=== PATIENT | male | born 1985 | race Hispanic/Latino ===

== ENCOUNTER 2017-04-11 01:56 | Emergency (ER) | payer MEDICAID, OTHER ==
[2017-04-11 01:56] VITALS: BMI 24.3
[2017-04-11 02:16] VITALS: TEMP 98.2
--- NOTE | 2017-04-11 02:48 | ED PDOC ---
HPI: General Adult Time Seen by Provider: 04/11/17 02:07 Chief Complaint (Nursing): Alcohol Ingestion Chief Complaint (Provider): intoxication Additional Complaint(s): 31yo M in ED -sent by EMS/police for disorderly conduct at a bar due to public intoxication. pt with slurred speech and unstable gait. Past Medical History Reviewed: Historical Data, Nursing Documentation, Vital Signs Vital Signs: Last Vital Signs Temp 98.2 F 04/11/17 02:15 Pulse 102 H 04/11/17 02:15 Resp 18 04/11/17 02:15 BP 161/94 H 04/11/17 02:15 Pulse Ox 97 04/11/17 02:49 - Medical History PMH: Asthma - Family History Family History: States: Unknown Family Hx - Immunization History Hx Tetanus Toxoid Vaccination: No Hx Influenza Vaccination: No Hx Pneumococcal Vaccination: No - Home Medications Home Medications: Ambulatory Orders Medication Instructions Recorded No Known Home Med 01/15/16 - Allergies Allergies/Adverse Reactions: Allergies Allergy/AdvReac Type Severity Reaction Status Date / Time No Known Allergies Allergy Verified 03/04/17 22:28 Review of Systems ROS Statement: Except As Marked, All Systems Reviewed And Found Negative Gastrointestinal: Negative for: Nausea, Vomiting, Abdominal Pain Physical Exam - Reviewed Nursing Documentation Reviewed: Yes Vital Signs Reviewed: Yes - Physical Exam Appears: Positive for: Non-toxic (pt intoxicated with unstable gait, but normal speech), No Acute Distress Head Exam: Positive for: ATRAUMATIC, NORMAL INSPECTION, NORMOCEPHALIC Skin: Positive for: Normal Color, Warm, DRY Cardiovascular/Chest: Positive for: Regular Rate, Rhythm Respiratory: Positive for: CNT, Normal Breath Sounds Neurologic/Psych: Positive for: Alert, Oriented - ECG O2 Sat by Pulse Oximetry: 97 Medical Decision Making Medical Decision Making: improved in ER-clinically sober for d/c Disposition - Clinical Impression Clinical Impression: Alcohol abuse - Patient ED Disposition Is Patient to be Admitted: No - Disposition Disposition: Routine/Home Disposition Time: 05:56 Condition: STABLE Instructions: Alcohol Intoxication (GEN)
[2017-04-11 06:28] VITALS: BP 133/79; PULSE 85; RESP 17; O2SAT 100
== END 2017-04-11 07:00 | disposition home or self-care (01) ==
LOC: H.ER 01:56
DX: F10.10 Alcohol abuse, uncomplicated (principal); J45.909 Unspecified asthma, uncomplicated

== ENCOUNTER 2017-04-17 00:54 | Emergency (ER) | payer MEDICAID ==
[2017-04-17 00:55] VITALS: BMI 24.3
[2017-04-17 01:06] VITALS: BP 160/90; PULSE 108; RESP 18; TEMP 98; O2SAT 97
--- NOTE | 2017-04-17 01:45 | ED PDOC ---
HPI: Psych/Substance Abuse Time Seen by Provider: 04/17/17 01:04 Chief Complaint (Nursing): Medical Clearance Chief Complaint (Provider): Abdominal pain History Per: Patient History/Exam Limitations: no limitations Onset/Duration Of Symptoms: Days (x 1) Current Symptoms Are (Timing): Still Present Additional Complaint(s): 31 year old male presents with diffuse abdominal pain, onset today. Patient is an alcoholic under arrest, in police custody. Pain is mild and diffuse. Denies nausea, vomiting, diarrhea, constipation and any other symptoms. PMD: none provided Past Medical History Reviewed: Historical Data, Nursing Documentation, Vital Signs Vital Signs: Last Vital Signs Temp 98.0 F 04/17/17 01:02 Pulse 108 H 04/17/17 01:02 Resp 18 04/17/17 01:02 BP 160/90 H 04/17/17 01:02 Pulse Ox 97 04/17/17 01:02 - Medical History PMH: Asthma - Surgical History Surgical History: No Surg Hx - Family History Family History: States: Unknown Family Hx - Immunization History Hx Tetanus Toxoid Vaccination: No Hx Influenza Vaccination: No Hx Pneumococcal Vaccination: No - Home Medications Home Medications: Ambulatory Orders Medication Instructions Recorded Dicyclomine [Bentyl] 20 mg PO BID #30 tab 04/17/17 - Allergies Allergies/Adverse Reactions: Allergies Allergy/AdvReac Type Severity Reaction Status Date / Time No Known Allergies Allergy Verified 03/04/17 22:28 Review of Systems ROS Statement: Except As Marked, All Systems Reviewed And Found Negative Gastrointestinal: Positive for: Abdominal Pain. Negative for: Nausea, Vomiting , Diarrhea, Constipation Physical Exam - Reviewed Nursing Documentation Reviewed: Yes Vital Signs Reviewed: Yes - Physical Exam Appears: Positive for: Non-toxic, No Acute Distress Head Exam: Positive for: ATRAUMATIC, NORMOCEPHALIC Skin: Positive for: Normal Color, Warm, Dry Eye Exam: Positive for: EOMI, Normal appearance, PERRL Neck: Positive for: Normal, Painless ROM, Supple Gastrointestinal/Abdominal: Positive for: Soft, Tenderness (diffuse minimal) - Laboratory Results Result Diagrams: 04/17/17 02:17 - ECG O2 Sat by Pulse Oximetry: 97 (RA) Pulse Ox Interpretation: Normal Medical Decision Making Medical Decision Making: Time: 01:21 Impression: Abdominal cramping vs malingering vs alcohol intoxication Initial Plan: --Alcohol serum --BMP --Lipase --Liver profile --Crisis evaluation --Bentyl 20 mg PO Pt. feels better. Patient requires no further treatment at this time and is medically stable. Will be discharged home. Return if symptoms persist or worsen. Scribe Attestation: Documented by Karen Rodríguez, acting as a scribe for Bernaeb Mulligan MD Provider Scribe Attestation: All medical record entries made by the Scribe were at my direction and personally dictated by me. I have reviewed the chart and agree that the record accurately reflects my personal performance of the history, physical exam, medical decision making, and the department course for this patient. I have also personally directed, reviewed, and agree with the discharge instructions and disposition. Disposition - Clinical Impression Clinical Impression: Alcohol intoxication - Patient ED Disposition Is Patient to be Admitted: No - Disposition Referrals: Alcoholics Anonymous [Outside] Disposition: Routine/Home Disposition Time: 04:35 Condition: IMPROVED Additional Instructions: Medically and psychiatrically cleared for incarceration. Prescriptions: Dicyclomine [Bentyl] 20 mg PO BID #30 tab Instructions: Alcohol Intoxication (ED) Forms: [employer] ([place]ian)
[2017-04-17 02:31] LABS: ALB/GLOB RATIO 1.2 (1.0-2.1); ALBUMIN 4.3 g/dL (3.5-5.0); ALT/SGPT 33 U/L (21-72); AST/SGOT 26 U/L (17-59); BILIRUBIN,DIRECT 0.2 mg/ml (0.0-0.4); BLOOD UREA NITROGEN 7 mg/dl (9-20); CALCIUM 9.2 mg/dL (8.4-10.2); GFR AFRICAN-AMERICAN > 60; GFR NON-AFRICAN AMERICAN > 60; LIPASE 55 U/L (23-300)
[2017-04-17 04:40] LABS: BARBITURATES, UR NEGATIVE (NEGATIVE); BENZODIAZEPINES, UR NEGATIVE (NEGATIVE); OPIATES, UR NEGATIVE (NEGATIVE); PHENCYCLIDINE, UR NEGATIVE (NEGATIVE)
== END 2017-04-17 04:40 | disposition home or self-care (01) ==
LOC: H.ER 00:54
DX: F10.129 Alcohol abuse with intoxication, unspecified; J45.909 Unspecified asthma, uncomplicated